=== PATIENT | female | born 1970 | race Caucasian/White ===

== ENCOUNTER 2016-09-12 16:43 | Emergency (ER) | payer MEDICAID ==
[2016-09-12 16:56] VITALS: BP 93/76; PULSE 84; RESP 16; TEMP 98.2; O2SAT 97
--- NOTE | 2016-09-12 17:49 | DX ---
Left Foot , reportable views History:Pain post trauma x one month. Comparison: None. Findings: There is a subacute transverse fracture coursing through the proximal fifth metatarsal meta physis. Demineralization around the fracture line is consistent with early healing. There is no distr action. There is no radiopaque callus or periosteal new bone. Alignment remains anatomic. Impression: Subacute proximal fifth metatarsal Siegel Fracture.
--- NOTE | 2016-09-12 17:56 | EDPHY ---
H & P Time Seen by Provider: 09/12/16 17:01 HPI/ROS: CHIEF COMPLAINT: left foot pain HISTORY OF PRESENT ILLNESS: 45-year-old female presents emergency department complaining of left foot pain x1 month. Patient reports on August 08 she stood up and her foot was asleep and she rolled on top of her foot and has had pain ever since. Patient reports she did not walk on it for the 1st few days in ever since has been walking on it. She states her pain is worse with more ambulation, better at night after rest. She continues with pain and swelling. She has not had an x-ray or been seen for this. She denies numbness or tingling to this foot, denies previous injuries to this foot. Smoking Status: Former smoker Physical Exam: GEN: Awake, alert, oriented, no acute distress RESP: nl resp effort MSK: Left ankle with full range of motion, no swelling, no tenderness, left foot with tenderness to the base of the 5th metatarsal, tenderness to 2nd and 3rd metatarsals, pain with lateral foot squeeze, 2+ pedal pulses, sensation intact to light touch, cap refill less than 2 seconds SKIN: No rash, no break in skin Constitutional: Initial Vital Signs Temperature (C) 36.8 C 09/12/16 16:53 Heart Rate 84 09/12/16 16:53 Respiratory Rate 16 09/12/16 16:53 Blood Pressure 93/76 L 09/12/16 16:53 O2 Sat (%) 97 09/12/16 16:53 O2 Delivery Mode Room Air Allergies/Adverse Reactions: No Known Allergies Allergy (Unverified 09/12/16 16:52) Home Medications: Medication Instructions Recorded NK [No Known Home Meds] 09/12/16 MDM/Departure - MDM Diagnostics: Left foot x-ray independently reviewed by me- Impression: Subacute proximal fifth metatarsal Siegel Fracture. Dictated By: Damon Valle MD - Depart Disposition: Home, Routine, Self-Care Clinical Impression: Fracture of fifth metatarsal bone of left foot Qualifiers: Encounter type: initial encounter Fracture type: closed Fracture alignment: nondisplaced Qualifier Code: (S92.355A) Nondisplaced fracture of fifth metatarsal bone, left foot, initial encounter for closed fracture Condition: Good Instructions: Foot Fracture in Adults (ED) Additional Instructions: Rest, ice, elevate, take 600mg of ibuprofen every 8 hours with food for 3-5 days as needed for pain and swelling. Use crutches for ambulation. Follow up with orthopedist or the medical cost consultant at 1st available appointment. Do not ambulate on this foot. Return to the emergency department for any numbness, tingling, discoloration of you limb or other concerns. Referrals: Reese Christopher DPM [Doctor of Podiatric Medicine] - As per Instructions ( [facility] on-call) Moy Plaza MD [Medical Doctor] - As per Instructions (Orthopedist on-call)
== END 2016-09-12 18:15 | disposition home or self-care (01) ==
DX: S92.355A Nondisplaced fracture of fifth metatarsal bone, left foot, initial encounter for closed fracture (principal); Z87.891 Personal history of nicotine dependence; X58.XXXA Exposure to other specified factors, initial encounter
CPT/HCPCS: L3260